=== PATIENT | female | born 1955 | race Caucasian/White ===

== ENCOUNTER 2019-05-01 20:42 | Observation (INO) | payer OTHER, MEDICARE ==
--- OUTSIDE RECORDS SUMMARY | 2019-05-01 20:44 | XMS REPORT ---
:1955 [facility] Address [address] [place] [address] Care Team Providers Name Role Phone Unavailable Unavailable Unavailable Problems This patient has no known problems. Allergies, Adverse Reactions, Alerts This patient has no known allergies or adverse reactions. Medications This patient has no known medications. Results Test Description Test Time Test Comments Text Results Atomic Results Result Comments RAD, CHEST, 2 2017-11-14 Reason for FINAL REPORT PATIENT VIEWS 09:55:00 Exam:->Q23.1Reason for ID: [id number] Chest, Exam:->I67.89Reason for PA and lateral. Exam:->147.1Reason for History: Q23.1. Exam:->E78.4Reason for Comparison: 07/20/2016. Exam:->R73.09Reason for Discussion: Heart size Exam:->Z13.1Reason for upper limits of normal. Exam:->R94.31Reason for The lungs are clear Exam:->I35.8 without evidence of consolidation or effusion. There are no acute osseous abnormalities. The soft tissues are unremarkable. IMPRESSION: No acute cardiopulmonary abnormality. Signed: Min Mccabe MDReport Verified Date/Time: 11/14/2017 09:55:09 Reading Location: [address] Radiology Reading Room
--- OUTSIDE RECORDS SUMMARY | 2019-05-01 20:44 | XMS REPORT | Clinical Summary ---
:1955 Author Organization [facility] Address [address] [place] [address] Care Team Providers Name Role Phone Kristofer Arambula Primary Care Provider Allergies Not on File Medications Not on file Active Problems Not on file Social History Tobacco Use Types Packs/Day Years Used Date Never Assessed Sex Assigned at Date Recorded Not on file Job Start Date Occupation Industry Not on file Not on file Not on file Travel History Travel Start Travel End No recent travel history available. Last Filed Vital Signs Not on file Plan of Treatment Not on file Results Not on fileafter 04/30/2018 Insurance Payer Benefit Plan / Subscriber ID Type Phone Address Group BLUE CROSS/BLUE BCBS ADV HMO xxxxxxxxxxxx [phone] [address] [place] [address]
[2019-05-01] MEDS ORDERED: ASPIRIN 81 MG CHEWABLE TABLET ONE (21:25)
[2019-05-01] MEDS ORDERED: METOPROLOL TAR 25 MG TAB ONE (21:25)
[2019-05-01] MEDS ORDERED: NA CHLORIDE 0.9% 500 ML ONE (21:25)
[2019-05-01 21:54] LABS: Absolute Lymphocytes (CBC) 1.6 K/uL (0.7-4.9); Basophils % 0.4 % (0-1.3); Eosinophils % 0.5 % (0-4.4); Lymphocytes % 35.8 % (15.3-44.8); MPV 10.6 fL (7.6-11.3); Monocytes % 10.9 % (3.3-12.3); RBC Red Blood Cell Count 5.01 M/uL (3.86-4.86)
[2019-05-01 22:06] LABS: Potassium 3.7 mmol/L (3.5-5.1); Thyroid Stimulating Hormone 0.806 uIU/mL (0.360-3.740); Troponin (Emerg Dept Use Only) 0.02 ng/mL (0.0-0.045)
--- NOTE | 2019-05-01 22:24 | EDPHYS ---
Physician Documentation [facility] Name: China Guevara Age: 63 yrs Sex: Female : 1955 Arrival Date: 05/01/2019 Time: 20:45 Bed 27 Private MD: ED Physician Chi Hand HPI: 05/01 21:10 This 63 yrs old Female presents to ER via Unassigned with complaints of rn Palpitations, Anxiety. 21:10 The patient presents with a history of irregular heart beat, heart racing. Context: The rn symptoms occur at rest. Onset: The symptoms/episode began/occurred 2 day(s) ago. Duration: The patient or guardian reports multiple episodes, that are intermittent. Modifying factors: The symptoms are aggravated by nothing. The symptoms are alleviated by nothing. Severity of symptoms: At their worst the symptoms were moderate in the emergency department the symptoms have improved. The patient has experienced a previous episode. Reports 2-3 days of intermittent palpitations, feels anxious, no chest pain, mild sob, no syncope. . 21:10 Reports has happened a few times before, seen here for it, but no diagnosis. Takes rn enalapril, metoprolol. . Historical: - Allergies: 22:32 Levaquin; ca1 - Home Meds: 22:32 enalapril maleate 5 mg Oral tab 1 tab once daily [Active]; metoprolol tartrate 25 mg ca1 Oral tab [Active]; atorvastatin 40 mg oral tab [Active]; - PMHx: 22:32 High Cholesterol; Hypertension; Irregular heart rate; Aortic Valve Problem; ca1 - PSHx: 22:32 None; ca1 - Immunization history:: Flu vaccine is not up to date. - Family history:: not pertinent. - Social history:: Smoking status: Patient/guardian denies using tobacco. - Ebola Screening: : Patient negative for fever greater than or equal to 101.5 degrees Fahrenheit, and additional compatible Ebola Virus Disease symptoms Patient denies exposure to infectious person Patient denies travel to an Ebola-affected area in the 21 days before illness onset. - Hospitalizations: : No recent hospitalization is reported. ROS: 21:10 Constitutional: Negative for fever, chills, and weight loss, Neck: Negative for injury, rn pain, and swelling, Cardiovascular: + palpitations, negative for chest pain Respiratory: Negative for cough, wheezing, and pleuritic chest pain, Abdomen/GI: Negative for abdominal pain, nausea, vomiting, diarrhea, and constipation, MS/Extremity: Negative for injury and deformity, Skin: Negative for injury, rash, and discoloration, Neuro: Negative for headache, weakness, numbness, tingling, and seizure. Exam: 21:10 Constitutional: This is a well developed, well nourished patient who is awake, alert, rn appears anxious Head/Face: Normocephalic, atraumatic. ENT: MMM Neck: Trachea midline, no thyromegaly or masses palpated, and no cervical lymphadenopathy. Supple, full range of motion without nuchal rigidity, or vertebral point tenderness. No Meningismus. Cardiovascular: tachycardic, irregular, no murmur Respiratory: Mild tachypnea, no retractions, is speaking full sentences Abdomen/GI: soft, non-tender MS/ Extremity: Pulses equal, no cyanosis. Neurovascular intact. Full, normal range of motion. Equal circumference. Neuro: Awake and alert, GCS 15, oriented to person, place, time, and situation. Cranial nerves II-XII grossly intact. Motor strength 5/5 in all extremities. Sensory grossly intact. Cerebellar exam normal. Normal gait. Vital Signs: 21:04 BP 142 / 94; Pulse 112; Resp 16 S; Pulse Ox 98% on R/A; Weight 65.77 kg (R); Height 5 ca1 ft. 2 in. (157.48 cm); Pain 4/10; 21:30 BP 148 / 86; Pulse 99; Resp 19 S; Pulse Ox 97% on R/A; ca1 22:30 BP 129 / 66; Pulse 76; Resp 17 S; Temp 98.4(O); Pulse Ox 97% on R/A; ca1 23:30 BP 121 / 69; Pulse 75; Resp 16 S; Pulse Ox 98% on R/A; ca1 05/02 00:03 BP 112 / 69; Pulse 77; Resp 16 S; Temp 98.2(O); Pulse Ox 98% on R/A; ca1 05/01 21:04 Body Mass Index 26.52 (65.77 kg, 157.48 cm) ca1 MDM: 05/01 20:52 Patient medically screened. rn 21:10 ED course: Told in past that may have aortic valve problem. . rn 22:21 Differential diagnosis: arrythmia, dehydration, stress disorder. Data reviewed: vital rn signs, nurses notes. Data reviewed: lab test result(s), EKG, radiologic studies, plain films, and as a result, I will admit patient. Counseling: I had a detailed discussion with the patient and/or guardian regarding: the historical points, exam findings, and any diagnostic results supporting the discharge/admit diagnosis, lab results, radiology results, the need for further work-up and treatment in the hospital. Response to treatment: the patient's symptoms have markedly improved after treatment, and as a result, I will admit patient. Admission orders: after a detailed discussion of the patient's condition and case, the admit orders are written by me. ED course: Will admit patient for new onset Afib with RVR, improved with metoprolol, may convert to sinus soon. Story sounds like paroxysmal Afib given previous episodes in past that self-resolved. Needs ECHO to rule out valvular afib given that she was told had aortic valve problem in past. No significant murmur appreciated on exam.. 22:56 ED course: Talking to patient, patient reported feeling lightheaded and near syncopal, rn recycled BP and was 140/90, HR controlled, laid her flat and she felt better, nurse notified to monitor patient, is admitted to Dr. Romero.. 05/01 21:04 Order name: CBC with Diff; Complete Time: 22:18 05/01 21:04 Order name: Basic Metabolic Panel; Complete Time: 22:18 05/01 21:04 Order name: Troponin (emerg Dept Use Only); Complete Time: 22:18 05/01 21:04 Order name: N-Terminal Pro-brain Natriuretic Peptide; Complete Time: 22:18 05/01 21:04 Order name: TSH; Complete Time: 22:18 05/01 21:04 Order name: T4 Free; Complete Time: 22:18 05/01 21:04 Order name: EKG; Complete Time: 21:05 05/01 21:10 Order name: XRAY Chest (1 view) 05/01 23:12 Order name: CONS Physician Consult [facility] 05/01 23:12 Order name: Echo with Doppler [facility] 05/01 21:04 Order name: IV Start; Complete Time: 21:53 rn 05/01 21:04 Order name: EKG - Nurse/Tech; Complete Time: 21:06 rn 05/01 23:12 Order name: EKG Electrocardiogram EDMS Administered Medications: 21:10 Drug: Metoprolol 25 mg Route: PO; ca1 05/02 00:04 Follow up: Response: No adverse reaction; Cardiac rhythm changed ca1 05/01 21:13 Drug: Aspirin Chewable Tablet 324 mg Route: PO; ca1 05/02 00:04 Follow up: Response: No adverse reaction ca1 05/01 21:45 Drug: NS 0.9% 500 ml Route: IV; Rate: bolus; Site: left forearm; cc3 23:00 Follow up: IV Status: Completed infusion ca1 22:49 Drug: Lovenox 1 mg/kg Route: Sub-Q; Site: right lower abdomen; ca1 05/02 00:04 Follow up: Response: No adverse reaction ca1 Disposition: 05/01/19 22:23 Hospitalization ordered by Charlotte Romero for Inpatient Admission. Preliminary diagnosis are Paroxysmal atrial fibrillation, Near syncope, Dyspnea, unspecified. - Bed requested for Telemetry/MedSurg (Inpatient). - Status is Inpatient Admission. ca1 - Condition is Stable. - Problem is new. - Symptoms have improved. UTI on Admission? No Signatures: Dispatcher [employer] EDMS Chi Hand MD MD rn Garcia, Cindy, RN RN cg Cordel, Charlene cc3 Laura Ridley RN RN ca1 Corrections: (The following items were deleted from the chart) 05/01 23:14 22:23 Hospitalization Ordered by Charlotte Romero MD for Inpatient Admission. Preliminary cg diagnosis is Paroxysmal atrial fibrillation; Near syncope; Dyspnea, unspecified. Bed requested for Telemetry/MedSurg (Inpatient). Status is Inpatient Admission. Condition is Stable. Problem is new. Symptoms have improved. UTI on Admission? No. rn 05/02 00:24 05/01 23:14 05/01/2019 22:23 Hospitalization Ordered by Charlotte Romero MD for Inpatient ca1 Admission. Preliminary diagnosis is Paroxysmal atrial fibrillation; Near syncope; Dyspnea, unspecified. Bed requested for Telemetry/MedSurg (Inpatient). Status is Inpatient Admission. Condition is Stable. Problem is new. Symptoms have improved. UTI on Admission? No. cg
--- NOTE | 2019-05-01 22:24 | ER ---
Nurse's Notes [facility] Name: China Guevara Age: 63 yrs Sex: Female : 1955 Arrival Date: 05/01/2019 Time: 20:45 Bed 27 Private MD: Diagnosis: Paroxysmal atrial fibrillation;Near syncope;Dyspnea, unspecified Presentation: 05/01 22:36 Acuity: ELIZABETH 2 ca1 22:37 Presenting complaint: Patient states: I have palpitations for a few days now. I can ca1 feel my heart racing but it slows down. But yesterday and today it seem like it doesn't slow down so I came to the ER. Transition of care: patient was not received from another setting of care. Onset of symptoms was May 01, 2019. Risk Assessment: Do you want to hurt yourself or someone else? Patient reports no desire to harm self or others. Initial Sepsis Screen: Does the patient meet any 2 criteria? No. Patient's initial sepsis screen is negative. Does the patient have a suspected source of infection? No. Patient's initial sepsis screen is negative. Care prior to arrival: None. 22:37 Method Of Arrival: Wheelchair ca1 Triage Assessment: 22:37 General: Appears in no apparent distress. comfortable, Behavior is calm, cooperative, ca1 appropriate for age. Historical: - Allergies: 22:32 Levaquin; ca1 - Home Meds: 22:32 enalapril maleate 5 mg Oral tab 1 tab once daily [Active]; metoprolol tartrate 25 mg ca1 Oral tab [Active]; atorvastatin 40 mg oral tab [Active]; - PMHx: 22:32 High Cholesterol; Hypertension; Irregular heart rate; Aortic Valve Problem; ca1 - PSHx: 22:32 None; ca1 - Immunization history:: Flu vaccine is not up to date. - Family history:: not pertinent. - Social history:: Smoking status: Patient/guardian denies using tobacco. - Ebola Screening: : Patient negative for fever greater than or equal to 101.5 degrees Fahrenheit, and additional compatible Ebola Virus Disease symptoms Patient denies exposure to infectious person Patient denies travel to an Ebola-affected area in the 21 days before illness onset. - Hospitalizations: : No recent hospitalization is reported. Screenin:00 Abuse screen: Denies threats or abuse. Denies injuries from another. Nutritional ca1 screening: No deficits noted. Tuberculosis screening: No symptoms or risk factors identified. 21:00 Fall Risk IV access (20 points). ca1 Assessment: 21:00 General: Appears in no apparent distress. comfortable, Behavior is calm, cooperative, ca1 appropriate for age. Pain: Complains of pain in chest Pain does not radiate. Pain currently is 4 out of 10 on a pain scale. Quality of pain is described as pressure, Pain began 2-3 days ago. 21:00 Neuro: Level of Consciousness is awake, alert, obeys commands, Oriented to person, ca1 place, time, situation. 21:00 Cardiovascular: Heart tones S1 S2 present Capillary refill < 3 seconds Patient's skin ca1 is warm and dry. Pulses are all present. Rhythm is atrial fibrillation with rapid ventricular response. Respiratory: Airway is patent Respiratory effort is even, unlabored, Respiratory pattern is regular, symmetrical, Breath sounds are clear bilaterally. GI: Abdomen is round non-distended, Bowel sounds present X 4 quads. Abd is soft and non tender X 4 quads. : No deficits noted. No signs and/or symptoms were reported regarding the genitourinary system. EENT: No deficits noted. No signs and/or symptoms were reported regarding the EENT system. Derm: Skin is intact, is healthy with good turgor, Skin is pink, warm \T\ dry. Musculoskeletal: Circulation, motion, and sensation intact. Capillary refill < 3 seconds, Range of motion: intact in all extremities. 22:00 Reassessment: Patient appears in no apparent distress at this time. Patient and/or ca1 family updated on plan of care and expected duration. Pain level reassessed. Patient is alert, oriented x 3, equal unlabored respirations, skin warm/dry/pink. 22:00 Cardiovascular: Rhythm is sinus rhythm. ca1 23:01 Reassessment: Patient appears in no apparent distress at this time. Patient and/or ca1 family updated on plan of care and expected duration. Pain level reassessed. Patient is alert, oriented x 3, equal unlabored respirations, skin warm/dry/pink. 23:44 Reassessment: Patient appears in no apparent distress at this time. Patient is alert, ca1 oriented x 3, equal unlabored respirations, skin warm/dry/pink. Called 4th floor, talked to Harleen about pt c/o of feeling lightheaded and dizzy while talking to Dr. Hand. And pt on bedrest for now, head flat on bed for precautionary measure. VS stable and within normal range. Vital Signs: 21:04 BP 142 / 94; Pulse 112; Resp 16 S; Pulse Ox 98% on R/A; Weight 65.77 kg (R); Height 5 ca1 ft. 2 in. (157.48 cm); Pain 4/10; 21:30 BP 148 / 86; Pulse 99; Resp 19 S; Pulse Ox 97% on R/A; ca1 22:30 BP 129 / 66; Pulse 76; Resp 17 S; Temp 98.4(O); Pulse Ox 97% on R/A; ca1 23:30 BP 121 / 69; Pulse 75; Resp 16 S; Pulse Ox 98% on R/A; ca1 05/02 00:03 BP 112 / 69; Pulse 77; Resp 16 S; Temp 98.2(O); Pulse Ox 98% on R/A; ca1 05/01 21:04 Body Mass Index 26.52 (65.77 kg, 157.48 cm) ca1 ED Course: 05/01 20:45 Patient arrived in ED. es 20:52 Chi Hand MD is Attending Physician. rn 21:00 Patient has correct armband on for positive identification. Placed in gown. Bed in low ca1 position. Call light in reach. Side rails up X 1. hospital monitor on. Pulse ox on. NIBP on. Warm blanket given. 21:00 Arm band placed on right wrist. EKG completed in triage. Results shown to MD. ca1 21:06 Laura Ridley, LAURYN is Primary Nurse. ca1 21:15 Missed attempt(s): 20 gauge in right antecubital area. Bleeding controlled, band aid ca1 applied, catheter tip intact. 21:25 Missed attempt(s): 20 gauge in left antecubital area. Bleeding controlled, band aid ca1 applied, catheter tip intact. 21:39 XRAY Chest (1 view) In Process Unspecified. EDMS 21:45 Inserted saline lock: 22 gauge in left forearm, using aseptic technique. cc3 22:22 Charlotte Romero MD is Hospitalizing Provider. rn 22:37 Triage completed. ca1 22:40 No provider procedures requiring assistance completed. Patient admitted, IV remains in ca1 place. Administered Medications: 21:10 Drug: Metoprolol 25 mg Route: PO; ca1 05/02 00:04 Follow up: Response: No adverse reaction; Cardiac rhythm changed ca1 05/01 21:13 Drug: Aspirin Chewable Tablet 324 mg Route: PO; ca1 05/02 00:04 Follow up: Response: No adverse reaction ca1 05/01 21:45 Drug: NS 0.9% 500 ml Route: IV; Rate: bolus; Site: left forearm; cc3 23:00 Follow up: IV Status: Completed infusion ca1 22:49 Drug: Lovenox 1 mg/kg Route: Sub-Q; Site: right lower abdomen; ca1 05/02 00:04 Follow up: Response: No adverse reaction ca1 Outcome: 05/01 22:23 Decision to Hospitalize by Provider. rn 23:45 Admitted to Tele accompanied by tech, via stretcher, room 411, with chart, Report fc called to Oscar Carson RN 23:45 Condition: good 23:45 Discharge instructions given to patient, Instructed on the need for admit, Demonstrated understanding of instructions. 05/02 00:24 Patient left the ED. ca1 Signatures: Dispatcher [employer] EDRebecca Gonzalez Felicia, RN RN Chi Hand MD MD rn Cordel, Charlene cc3 Laura Ridley RN RN ca1 Corrections: (The following items were deleted from the chart) 05/01 22:30 21:00 Pain: Complains of pain in chest Pain does not radiate. Pain currently is 4 out ca1 of 10 on a pain scale. Quality of pain is described as pressure, Pain began 2-3 days ago. ca1 22:35 22:30 BP 129 / 66; Pulse 76bpm; Resp 17bpm; Pulse Ox 97% RA; Temp 98.4F Oral; ca1 ca1 05/02 00:02 05/01 23:44 Reassessment: Patient appears in no apparent distress at this time. Patient ca1 is alert, oriented x 3, equal unlabored respirations, skin warm/dry/pink. ca1 05/02 00:05 05/01 22:00 Reassessment: Patient appears in no apparent distress at this time. Patient ca1 and/or family updated on plan of care and expected duration. Pain level reassessed. Patient is alert, oriented x 3, equal unlabored respirations, skin warm/dry/pink. ca1 05/02 00:06 00:03 BP 112 / 69; Pulse 77bpm; Resp 16bpm; Spontaneous; Pulse Ox 98% RA; ca1 ca1
[2019-05-01] MEDS ORDERED: ENOXAPARIN 60 MG/0.6 ML SQ ONE (22:58)
[2019-05-01] MEDS ORDERED: ACETAMINOPHEN 500 MG TAB PO PRN (23:01)
[2019-05-01] MEDS ORDERED: ONDANSETRON 4 MG/2 ML VIAL IV PRN (23:01)
[2019-05-01] MEDS ORDERED: NA CHLORIDE 0.9% 1,000 ML IV SCH (23:45)
[2019-05-01] MEDS ORDERED: METOPROLOL TARTRATE 5 MG/5 ML INJ IV ONE (23:59)
[2019-05-02 06:10] LABS: Absolute Lymphocytes (CBC) 1.8 K/uL (0.7-4.9); Basophils % 0.2 % (0-1.3); Eosinophils % 0.5 % (0-4.4); Hematocrit 41.2 % (36.0-45.0); MPV 10.4 fL (7.6-11.3); Monocytes % 10.2 % (3.3-12.3); RBC Red Blood Cell Count 4.62 M/uL (3.86-4.86)
[2019-05-02 06:26] LABS: Bilirubin Total 0.4 mg/dL (0.2-1.0); Magnesium 2.5 mg/dL (1.8-2.4); Phosphorus 3.6 mg/dL (2.5-4.9); Potassium 3.9 mmol/L (3.5-5.1); Protein, Total 5.9 g/dL (6.4-8.2)
[2019-05-02] MEDS: METOPROLOL TAR 50 MG TAB PO SCH ×2 (06:35→07:03)
--- NOTE | 2019-05-02 06:39 | EKG ---
Test Date: 2019-05-01 Test Time: 20:58:00 [employer]ing [employer]: AG3 MEASUREMENT RESULTS: Intervals: Rate: 119 IA: QRSD: 80 QT: 340 QTc: 478 [place]: P: IA: QRS: 71 T: 30 INTERPRETIVE STATEMENTS: Atrial fibrillation with rapid ventricular response Nonspecific ST abnormality Abnormal ECG Compared to ECG 01/18/2018 00:44:31 ST (T wave) deviation now present Sinus rhythm no longer present T-wave abnormality no longer present Electronically Signed On 05-02-19 06:38:58 CDT by Surinder Reyes
--- NOTE | 2019-05-02 08:44 | RAD REPORT ---
EXAM DESCRIPTION: RAD - Chest Single View - 05/01/2019 9:40 pm CLINICAL HISTORY: Palpitations, shortness of breath COMPARISON: January 2018 TECHNIQUE: AP portable chest image was obtained 2137 hours . FINDINGS: No focal lung parenchymal process. No failure or volume overload. Lung markings are simila r to comparison. Mediastinum hilar regions are stable from comparison. Heart and vasculature are normal. No measurable pleural effusion and no pneumothorax. No acute bony abnormality seen. No acute aortic findings suspe cted. IMPRESSION: No acute cardiopulmonary process. No significant interval change.
--- NOTE | 2019-05-02 10:08 | EKG ---
Test Date: 2019-05-02 Test Time: 07:23:44 [employer]: NICOLE MEASUREMENT RESULTS: Intervals: Rate: 51 ME: 166 QRSD: 92 QT: 460 QTc: 423 [place]: P: 69 ME: 166 QRS: 51 T: 48 INTERPRETIVE STATEMENTS: Sinus bradycardia with sinus arrhythmia Otherwise normal ECG Compared to ECG 05/01/2019 20:58:00 Atrial fibrillation no longer present ST (T wave) deviation no longer present Electronically Signed On 05-02-19 10:07:18 CDT by Benny Gonzalez
[2019-05-02] MEDS ORDERED: ENOXAPARIN 60 MG/0.6 ML SQ SCH (11:00)
[2019-05-02] MEDS ORDERED: POTASSIUM CL SA 10 MEQ TAB PO ONE (11:00)
--- NOTE | 2019-05-02 11:38 | P.HP ---
Certification for Inpatient Patient admitted to: Observation With expected LOS: <2 Midnights Patient will require the following post-hospital care: None Practitioner: I am a practitioner with admitting privileges, knowledge of patient current condition, hospital course, and medical plan of care. Services: Services provided to patient in accordance with Admission requirements found in Title 42 Section 412.3 of the Code of Federal Regulations Patient History Date of Service: 05/01/19 Reason for admission: ATRIAL FIBRILLATION WITH RAPID VENTRICULAR RESP History of Present Illness: PATIENT IS A 63-YEAR-OLD FEMALE WHO CAME TO THE HOSPITAL WITH PALPITATIONS. SHE HAS BEEN HAVING THEM QUITE FREQUENTLY OVER THE LAST FEW DAYS. TODAY WAS REALLY BAD SO SHE CAME TO THE HOSPITAL FOR FURTHER EVALUATION. IN THE EMERGENCY ROOM SHE WAS FOUND TO BE IN ATRIAL FIBRILLATION WITH RVR. PATIENT WAS GIVEN BETA-BLOCKERS HER SYMPTOMS RESOLVED. SHE WILL BE ADMITTED TO THE HOSPITAL FOR FURTHER TESTING. WE WILL GET CARDIOLOGY CONSULTATION, AND START PATIENT ON ANTICOAGULATION WELL. PATIENT IS CLINICALLY DOING BETTER AT THIS TIME. WILL OBSERVE HER IN THE HOSPITAL FOR THE NEXT 24 HR AND ANTICIPATE DISCHARGE HOME LATER TOMORROW EVENING. Allergies levofloxacin [From Levaquin] Adverse Reaction (Severe, Verified 05/02/19 00:54) severe vomiting Home Medications: Atorvastatin Calcium 1 tab PO BEDTIME 05/02/19 Enalapril Maleate [Vasotec] 5 mg PO DAILY 05/02/19 Metoprolol Succinate 25 mg PO DAILY 05/02/19 - Past Medical/Surgical History Has patient received pneumonia vaccine in the past: No Diabetic: No -: high cholesterol -: hypertension -: irregular heart rate Past Surgical History: Patient denies surgical history - Family History Mother Medical History: Heart disease, Diabetes Father History Unknown: Yes - Social History Smoking Status: Never smoker Alcohol use: No CD- Drugs: No Caffeine use: No Place of Residence: Home Review of Systems 10-point ROS is otherwise unremarkable Physical Examination - Vital Signs Temperature: 98.0 F Blood Pressure: 107/58 Pulse: 55 Respirations: 18 Pulse Ox (%): 96 - Physical Exam General: Alert, In no apparent distress, Oriented x3 HEENT: Atraumatic, PERRLA, Mucous membr. moist/pink, EOMI, Sclerae nonicteric Neck: Supple, 2+ carotid pulse no bruit, No LAD, Without JVD or thyroid abnormality Respiratory: Clear to auscultation bilaterally, Normal air movement Cardiovascular: Regular rate/rhythm, Normal S1 S2 Gastrointestinal: Normal bowel sounds, No tenderness Musculoskeletal: No tenderness Integumentary: No rashes Neurological: Normal gait, Normal speech, Normal strength at 5/5 x4 extr, Normal tone, Sensation intact, Cranial nerves 3-12 intact, Normal affect Lymphatics: No axilla or inguinal lymphadenopathy - Studies Laboratory Data (last 24 hrs) 05/01/19 21:20: Sodium 142, Potassium 3.7, BUN 13, Creatinine 0.85, Glucose 143 H 05/01/19 21:20: WBC 4.4, Hgb 15.0, Hct 45.0, Plt Count 149 L Assessment & Plan - Problems (Diagnosis) (1) Atrial fibrillation with rapid ventricular response Current Visit: Yes Status: Acute - Plan 1. WILL CONTINUE MEDICATIONS FOR RATE CONTROL AND ANTICOAGULATION 2. CONTINUE WITH STRICT BLOOD PRESSURE CONTROL 3. ECHOCARDIOGRAM 4. CARDIOLOGY CONSULTATION 5. REPEAT CHEST X-RAY 6. GI AND DVT PROPHYLAXIS - Advance Directives Does patient have a Living Will: No Does patient have a Durable POA for Healthcare: No
--- NOTE | 2019-05-02 12:37 | ECHO ---
HEIGHT: 5 ft 2 in WEIGHT: 144 lb 11.2 oz DATE OF STUDY: 05/02/[address]: Charlotte Romero MD 2-DIMENSIONAL: YES M.MODE: YES DOPPLER: YES COLOR FLOW: YES TDS: NO PORTABLE: NO DEFINITY: NO BUBBLE STUDY: NO DIAGNOSIS: ATRIAL FIBRILLATION WITH RAPID VENTRICULAR RESPONSE CARDIAC HISTORY: CATHERIZATION: SURGERY: PROSTHETIC VALVE: PACEMAKER: MEASUREMENTS (cm) DIASTOLIC (NORMALS) SYSTOLIC (NORMALS) IVSd 0.7 (0.6-1.2) LA Diam 2.9 (1.9-4.0) LVEF 73% LVIDd 5.4 (3.5-5.7) LVIDs 3.1 (2.0-3.5) %FS 42% LVPWd 0.9 (0.6-1.2) Ao Diam 3.1 (2.0-3.7) 2 DIMENSIONAL ASSESSMENT: RIGHT ATRIUM: NORMAL LEFT ATRIUM: NORMAL RIGHT VENTRICLE: NORMAL LEFT VENTRICLE: NORMAL TRICUSPID VALVE: NORMAL MITRAL VALVE: NORMAL PULMONIC VALVE: NORMAL AORTIC VALVE: SCLEROSIS PERICARDIAL EFFUSION: NONE AORTIC ROOT: NORMAL LEFT VENTRICULAR WALL MOTION: NORMAL DOPPLER/COLOR FLOW: NORMAL COMMENTS: AORTIC SCLEROSIS WITH NO STENOSIS. NORMAL LEFT VENTRICULAR SIZE AND FUNCTION. NO WALL MOTION ABNORMALITY. NO EFFUSION. TECHNOLOGIST: [employer]
[2019-05-02] MEDS ORDERED: ATORVASTATIN 40 MG TAB PO SCH (21:00)
--- NOTE | 2019-05-02 23:14 | CON ---
Date of Consultation: 05/02/2019 Reason For Consultation: New-onset atrial fibrillation. History Of Present Illness: Ms. Guevara is a 63-year-old woman. She sees with Dr. Juwan Patel in [facility] from a cardiac standpoint. She sees [facility], here locally. She has had a history of hypertension, dyslipidemia, aortic valve disorder, and irregular heartbeat in the past, but has ne nevin been documented to have atrial fibrillation. She came in with atrial fibrillation, rapid ventric ular response, that has now converted to sinus rhythm after use of IV Lopressor. She denied syncope. Denied chest pain. She had shortness of breath and palpitation. Denies nausea, vomiting, or diaph oresis. Allergies: SHE IS ALLERGIC TO LEVAQUIN. Medications: At home include metoprolol, Lipitor, and Vasotec. Review of Systems: Negative. Social History: Negative. Family History: Noncontributory. Physical Examination: General: She was in sinus rhythm today. No acute distress. Vital Signs: Stable. Afebrile. HEENT: Negative. Neck: Supple with no bruit. Chest: Clear to auscultation and percussion. Cardiac: Regular rhythm and rate with a 2/6 systolic ejection murmur at the right intercostal space that did not radiate. Abdomen: Benign. Extremities: No clubbing, cyanosis, or edema. Diagnostic Data: Her BNP was 387. Her triglycerides were high. Initial EKG showed atrial fibrillat ion, the next one was normal. Impression And Plan: New-onset atrial fibrillation, resolved on beta becky. I think she needs to be on a higher dose of beta becky at home. The patient is to be anticoagulated because she has a v estrella high CHADS score. She is a woman, 63, high blood pressure with cholesterol as well as aortic keyur ve disorder. I will leave that up to Dr. Romero, who want to put her on Xarelto and Eliquis. This was discussed with the patient. I think she can go home whenever it is okay with admitting physician an d follow up with Dr. Patel in the near future. Her other problems including hypertension are stable. Her dyslipidemia is poorly controlled and she needs to follow up on that with Dr. Patel or with Ms. Juarez. An echocardiogram is pending to rule out aortic stenosis. LAURENCE/MODL Voice ID: [id number] Report ID: [id number]
--- NOTE | 2019-05-03 00:31 | DS ---
Date of Discharge: 05/02/2019 Consultants: Dr. Gonzalez. Procedures: None. Discharge Diagnoses: 1. Atrial fibrillation with RVR. 2. Essential hypertension. 3. Mixed hyperlipidemia. Hospital Course: The patient is a 63-year-old female, came in with palpitations. The patient was found to have atrial fibrillation with RVR. The patient has had these episodes previously, however, was not previously diagnosed. The patient was given beta blockers, which helped improved her rate. She converted back to sinus rhythm. She was seen by Cardiology, Dr. Gonzalez and she was also started on anticoagulation with Lovenox. Dr. Gonzalez recommended increasing Lopressor to 50 mg twice a day and to start her on oral anticoagulation. The patient overall did well. Her troponin levels were negative. TSH was normal. Magnesium level was slightly high at 2.5. No signs of any other acute infection. White blood cell count was normal. The patient usually follows up with Dr. Patel in [facility] and is recommended to follow up with her primary child development professor in 1-2 weeks post discharge. The patient was then cleared for discharge and she was sent home in a stable condition. Activity: As tolerated. Medications: As per medication reconciliation list. Followup: Follow up with primary care physician in 2-3 days. Follow up with primary child development professor, Dr. Patel at [facility]. Return to ER for worsening condition. Diet: Heart-healthy. Medications: As per medication reconciliation list. Physical Examination: General: Awake, alert, oriented x3. No acute distress. CV: S1, S2. No murmurs. Respiratory: Moving air well bilaterally. Abdomen: Soft, nontender, nondistended. Positive bowel sounds. Extremities: No clubbing, cyanosis, or edema. Neuro: Nonfocal. Code Status: Full. SA/MODL Voice ID: [id number] Report ID: [id number] MTDD
--- NOTE | 2019-05-03 08:27 | EKG ---
Test Date: 2019-05-02 Test Time: 13:45:49 Automotive Artist: SHIRA MEASUREMENT RESULTS: Intervals: Rate: 67 CO: 146 QRSD: 88 QT: 434 QTc: 458 [place]: P: 51 CO: 146 QRS: 56 T: 34 INTERPRETIVE STATEMENTS: Normal sinus rhythm with sinus arrhythmia Normal ECG Compared to ECG 05/02/2019 07:23:44 Sinus bradycardia no longer present Electronically Signed On 05-03-19 08:25:00 CDT by Benny Gonzalez
[2019-05-03] MEDS ORDERED: ENALAPRIL 2.5 MG TAB PO SCH (09:00)
== END 2019-05-02 14:55 | disposition home or self-care (01) ==
LOC: ER 20:42 → ERHOLD 23:02 → 4TH 23:48
PROVIDERS: ADMIT Hospitalist; ATTEND Hospitalist
DX: I48.2 Chronic atrial fibrillation (principal); I10 Essential (primary) hypertension; E78.5 Hyperlipidemia, unspecified; I35.8 Other nonrheumatic aortic valve disorders
CPT/HCPCS: 93005 ×3; 93306; 85025 ×2; 80048; 36415; 83735; 84100; 84443; 84484 ×2; 84439; 80053; 83880 ×2; 71045; 96360; 96372; 99285; J1650; J7030; G0378 ×2

== ENCOUNTER 2021-01-18 20:14 | Inpatient (IN) | payer OTHER, MEDICARE ==
--- OUTSIDE RECORDS SUMMARY | 2021-01-18 20:17 | XMS REPORT | Continuity of Care Document ---
:1955 Author Organization [facility] t Address [address] [place] [address] Care Team Providers Name Role Phone Moustapha Arambula Primary Care Physician Problems This patient has no known problems. Allergies, Adverse Reactions, Alerts This patient has no known allergies or adverse reactions. Social History Social Habit Start Date Stop Date Quantity Comments Source Sex Assigned At [facility] Medications This patient has no known medications. Procedures This patient has no known procedures. Plan of Care Planned Activity Planned Date Details Comments Source Future Scheduled 2020-07-07 INFLUENZA VACCINE (#1) [facility] - Test 00:00:00 [code = INFLUENZA Medical Ce nter VACCINE (#1)] Future Scheduled 2019-10-[address] [facility] - Test 00:00:00 WELLNESS (YEAR 2 or Medical Center FIRST YEAR if no IPPE) [code = MEDICARE ANNUAL WELLNESS (YEAR 2 or FIRST YEAR if no IPPE)] Future Scheduled 2018 PNEUMOCOCCAL 65+ YRS [facility] - Test 00:00:00 (1 of 1 - [facility] Center [id number]) [code = PNEUMOCOCCAL 65+ YRS (1 of 1 - [id number] PCV13)] Future Scheduled [address] [facility] - Test 00:00:00 [facility] of [facility] breast (procedure) [code = 269935940] Future Scheduled [address] [facility] - Test 00:00:00 malignant neoplasm of [facility] colon (procedure) [code = 678985476] Results Test Description Test Time Test Comments Results Result [facility] e Comments RAD, CHEST, 2 2019-06-26 Reason for FINAL REPORT PATIENT VIEWS 11:45:00 Exam:->AR ID: [id number] TECHNIQUE: Frontal and lateral views of the chest. INDICATION: 63-year-old woman with aortic regurgitation. COMPARISON: Chest radiographs 11/14/2017. FINDINGS: LINES/TUBES: None. LUNGS: The lungs are well inflated and clear. PLEURA: No pleural effusion or pneumothorax. HEART AND MEDIASTINUM: The cardiomediastinal silhouette is within normal limits. Atherosclerotic calcifications in the mildly tortuous thoracic aorta. SOFT TISSUES AND BONES: Unremarkable. IMPRESSION:No acute cardiopulmonary abnormalities. No significant change since 11/14/2017. Signed: Susie Page MDRolga Verified Date/Time: 06/26/2019 11:45:00 Reading Location: [address] Radiology Reading Room , CHEST, 2 2017-11-14 Reason for FINAL REPORT PATIENT VIEWS 09:55:00 Exam:->Q23.1Re ID: [id number] Chest, ason for PA and lateral. Exam:->I67.89R History: Q23.1. ray for Comparison: 07/20/2016. Exam:->147.1Re Discussion: Heart size ason for upper limits of normal. Exam:->E78.4Re The lungs are clear ason for without evidence of Exam:->R73.09R consolidation or ray for effusion. There are no Exam:->Z13.1Re acute osseous ason for abnormalities. The soft Exam:->R94.31R tissues are ray for unremarkable. Exam:->I35.8 IMPRESSION: No acute cardiopulmonary abnormality. Signed: Min Cotnreras MDReport Verified Date/Time: 11/14/2017 09:55:09 Reading Location: [address] Radiology Reading Room
[2021-01-19 00:54] LABS: Absolute Lymphocytes (CBC) 1.4 K/uL (0.7-4.9); Basophils % 0.9 % (0-1.3); Hematocrit 40.9 % (36.0-45.0); Lymphocytes % 18.2 % (15.3-44.8); MPV 10.9 fL (7.6-11.3); RBC Red Blood Cell Count 4.53 M/uL (3.86-4.86)
[2021-01-19 01:01] LABS: Protime INR 0.97
[2021-01-19 01:07] LABS: Urine Blood NEGATIVE (NEG); Urine Glucose NEGATIVE (NEG); Urine Protein NEGATIVE (NEG); Urine Specific Gravity 1.025 (1.005-1.030)
[2021-01-19 01:15] LABS: Albumin 3.7 g/dL (3.4-5.0); Bilirubin Direct 0.1 mg/dL (0-0.2); Bilirubin Total 0.4 mg/dL (0.2-1.0); Magnesium 2.2 mg/dL (1.8-2.4); Potassium 3.8 mmol/L (3.5-5.1); Protein, Total 7.2 g/dL (6.4-8.2); Troponin (Emerg Dept Use Only) 0.14 ng/mL (0.0-0.045)
--- NOTE | 2021-01-19 01:56 | EDPHYS ---
Physician Documentation [facility] Name: China Guevara Age: 65 yrs Sex: Female : 1955 Arrival Date: 01/18/2021 Time: 21:42 Bed 6 Private MD: ED Physician Horace Giron HPI: 01/19 07:49 This 65 yrs old Female presents to ER via Ambulatory with complaints of tw4 Memory Loss. 07:49 The patient's problem is reported as altered mental status, disoriented to self, place, tw4 confused, decreased responsiveness. Onset: The symptoms/episode began/occurred today, 8 hour(s) ago. Duration: This was a single incident. Context: the episode(s) was witnessed, by a significant other. The symptoms are alleviated by nothing. The symptoms are aggravated by nothing. Severity of symptoms: At their worst the symptoms were moderate in the emergency department the symptoms are unchanged. The patient has not experienced similar symptoms in the past. Historical: - Allergies: 01/18 21:50 Levaquin; ca1 - PMHx: 21:50 aortic valve problem; High Cholesterol; Hypertension; Irregular heart rate; ca1 - PSHx: 21:50 None; ca1 - Immunization history:: Flu vaccine is not up to date. - Social history:: Smoking status: Patient denies any tobacco usage or history of. ROS: 01/19 07:49 Constitutional: Negative for fever, chills, and weight loss, Eyes: Negative for injury, tw4 pain, redness, and discharge, Cardiovascular: Negative for chest pain, palpitations, and edema, Respiratory: Negative for shortness of breath, cough, wheezing, and pleuritic chest pain, Abdomen/GI: Negative for abdominal pain, nausea, vomiting, diarrhea, and constipation, Back: Negative for injury and pain, MS/Extremity: Negative for injury and deformity, Skin: Negative for injury, rash, and discoloration. Neuro: Positive for altered mental status, Negative for dizziness, gait disturbance, headache, seizure activity, speech changes, syncope, near syncope, tingling, tinnitus, tremor. Exam: 07:49 Radiologist reports: NORMAL NOTHING ACUTE tw4 07:49 Constitutional: This is a well developed, well nourished patient who is awake, alert, and in no acute distress. Head/Face: Normocephalic, atraumatic. Chest/axilla: Normal chest wall appearance and motion. Nontender with no deformity. No lesions are appreciated. Cardiovascular: Regular rate and rhythm with a normal S1 and S2. No gallops, murmurs, or rubs. Normal PMI, no JVD. No pulse deficits. Respiratory: Lungs have equal breath sounds bilaterally, clear to auscultation and percussion. No rales, rhonchi or wheezes noted. No increased work of breathing, no retractions or nasal flaring. Abdomen/GI: Soft, non-tender, with normal bowel sounds. No distension or tympany. No guarding or rebound. No evidence of tenderness throughout. Back: No spinal tenderness. No costovertebral tenderness. Full range of motion. MS/ Extremity: Pulses equal, no cyanosis. Neurovascular intact. Full, normal range of motion. Neuro: Awake and alert, GCS 15, oriented to person, place, time, and situation. Cranial nerves II-XII grossly intact. Motor strength 5/5 in all extremities. Sensory grossly intact. Cerebellar exam normal. Normal gait. Vital Signs: 01/18 21:43 BP 141 / 78; Pulse 63; Resp 16 S; Temp 97.3(TE); Pulse Ox 100% on R/A; Weight 72.57 kg ca1 (R); Height 5 ft. 3 in. (160.02 cm) (R); Pain 0/10; 01/19 00:00 BP 125 / 89; Pulse 60; Resp 16; Pulse Ox 98% ; rr5 01/18 21:43 Body Mass Index 28.34 (72.57 kg, 160.02 cm) ca1 MDM: 01/18 23:55 Patient medically screened. tw4 01/19 07:51 Differential diagnosis: CVA, TIA. Data reviewed: vital signs, nurses notes. Data tw4 interpreted: Pulse oximetry: Interpretation: normal. Counseling: I had a detailed discussion with the patient and/or guardian regarding: the historical points, exam findings, and any diagnostic results supporting the discharge/admit diagnosis. Physician consultation: Stephen Gibson DO regarding admission, to the telemetry unit. patient's condition, and will see patient in ED. Special discussion:. 01/18 23:27 Order name: Basic Metabolic Panel; Complete Time: 01:22 ea 01/19 01:22 Interpretation: Normal except: CL 110; GFR 82. tw4 01/18 23:27 Order name: CBC with Diff; Complete Time: 01:22 01/19 01:22 Interpretation: PLT 149; MN% 3.1; BR[place]GET[place]% 77.5. tw4 01/18 23:27 Order name: LFT's; Complete Time: 01:22 01/18 23:27 Order name: Magnesium; Complete Time: 01:22 01/18 23:27 Order name: NT PRO-BNP; Complete Time: 01:22 01/18 23:27 Order name: PT-INR; Complete Time: 01:22 01/18 23:27 Order name: Troponin (emerg Dept Use Only); Complete Time: : 01/19 00:12 Order name: Urine Dipstick--Ancillary (enter results); Complete Time: 01:22 tt3 01/19 02:10 Order name: COVID-19 : Document "Date of Symptom Onset" if Symptomatic. tt3 01/19 02:58 Order name: UDS la1 01/19 02:58 Order name: Urine Drug Screen [facility] 01/19 03:59 Order name: SARS-COV-2 RT PCR [facility] 01/18 23:27 Order name: XRAY Chest (1 view) 01/18 23:27 Order name: EKG; Complete Time: 23:48 01/18 23:27 Order name: Cardiac monitoring; Complete Time: 00:41 01/18 23:27 Order name: EKG - Nurse/Tech; Complete Time: 00:41 01/18 23:27 Order name: IV Saline Lock; Complete Time: 00:41 01/18 23:27 Order name: Labs collected and sent; Complete Time: 00:41 01/18 23:46 Order name: Ct Stroke Brain Wo Cont [facility] 01/19 05:57 Order name: Troponin I [facility] 01/19 08:10 Order name: Lipid Profile [facility] 01/19 08:10 Order name: T4 Free [facility] 01/19 08:10 Order name: Thyroid Stimulating Hormone [facility] 01/18 23:27 Order name: O2 Per Protocol; Complete Time: 00:41 01/18 23:27 Order name: O2 Sat Monitoring; Complete Time: 00:41 01/18 23:29 Order name: Urine Dipstick-Ancillary (obtain specimen); Complete Time: 00:41 tw4 EC:49 Rate is 59 beats/min. Rhythm is regular, Sinus bradycardia. QRS [place] is Normal. [place] tw4 interval is normal. QRS interval is normal. QT interval is normal. No Q waves. T waves are Inverted in leads V1, V2, V3. No ST changes noted. Clinical impression: Sinus bradycardia. Interpreted by me. Reviewed by me. Administered Medications: 02:07 Drug: Lovenox 1 mg/kg Route: Sub-Q; Site: right lower abdomen; rr5 03:37 Follow up: Response: No adverse reaction rr5 03:36 Drug: Atorvastatin 40 mg Route: PO; rr5 05:55 Follow up: Response: No adverse reaction ea 03:37 Drug: foLIC Acid 1 mg Route: PO; rr5 05:55 Follow up: Response: No adverse reaction ea 03:37 Drug: Aspirin Chewable Tablet 324 mg Route: PO; rr5 05:56 Follow up: Response: No adverse reaction ea Disposition: 01/19/21 01:56 Hospitalization ordered by Stephen Gibson for Inpatient Admission. Preliminary diagnosis are Non-ST elevation (NSTEMI) myocardial infarction, Altered mental status, unspecified. - Bed requested for Telemetry/MedSurg (Inpatient). - Status is Inpatient Admission. sv - Condition is Stable. - Problem is new. - Symptoms have improved. Signatures: Dispatcher [employer] [facility] Ann-Marie Corbett RN RN sv Webb, Martha, RN RN Clinton Love RN RN sg Lydia, Ankur, VICE PRESIDENT RISK MANAGEMENT-C VICE PRESIDENT RISK MANAGEMENT-Cla1 Emily Martin RN RN ea Wadley, Terrence, MD MD tw4 Juan Gibson, RN RN rr5 Laura Ridley RN RN ca1 Corrections: (The following items were deleted from the chart) 01/18 23:52 23:48 Head Brain Wo Cont+CT.RAD.BRZ ordered. [facility] 01/19 02:04 01:56 Hospitalization Ordered by Juan Hand MD for Inpatient Admission. Preliminary sg diagnosis is Non-ST elevation (NSTEMI) myocardial infarction; Altered mental status, unspecified. Bed requested for Telemetry/MedSurg (Inpatient). Status is Inpatient Admission. Condition is Stable. Problem is new. Symptoms have improved. tw4 02:31 02:04 01/19/2021 01:56 Hospitalization Ordered by Juan Hand MD for Inpatient la1 Admission. Preliminary diagnosis is Non-ST elevation (NSTEMI) myocardial infarction; Altered mental status, unspecified. Bed requested for [facility] ER HOLD. Status is Inpatient Admission. Condition is Stable. Problem is new. Symptoms have improved. 03:12 02:08 CORONAVIRUS+MR.LAB.BRZ ordered. EDDE EDMS 03:13 02:11 CORONAVIRUS ordered. EDDE EDMS 06:28 02:31 01/19/2021 01:56 Hospitalization Ordered by Stephen Gibson DO for Inpatient mw Admission. Preliminary diagnosis is Non-ST elevation (NSTEMI) myocardial infarction; Altered mental status, unspecified. Bed requested for [facility] ER HOLD. Status is Inpatient Admission. Condition is Stable. Problem is new. Symptoms have improved. la1 08:41 06:28 01/19/2021 01:56 Hospitalization Ordered by Stephen Gibson DO for Inpatient sv Admission. Preliminary diagnosis is Non-ST elevation (NSTEMI) myocardial infarction; Altered mental status, unspecified. Bed requested for Telemetry/MedSurg (Inpatient). Status is Inpatient Admission. Condition is Stable. Problem is new. Symptoms have improved. mw
--- NOTE | 2021-01-19 01:56 | ER ---
Nurse's Notes [facility] Name: China Guevara Age: 65 yrs Sex: Female : 1955 Arrival Date: 01/18/2021 Time: 21:42 Bed 6 Private MD: Diagnosis: Non-ST elevation (NSTEMI) myocardial infarction;Altered mental status, unspecified Presentation: 01/18 21:43 Chief complaint: Spouse and/or significant other states: Around 1630 this afternoon, ca1 she woke up from a nap she was okay, she sounded normal. 10 minutes later, she went to the kitchen, she ws confused, did not know what day of the week it is, she can't name our cats, she just started asking odd questions. A\T\Ox3. No slurring, no facial droop. VAN negative. Coronavirus screen: Client denies travel out of the [place] in the last 14 days. At this time, the client does not indicate any symptoms associated with coronavirus-19. Ebola Screen: Patient negative for fever greater than or equal to 101.5 degrees Fahrenheit, and additional compatible Ebola Virus Disease symptoms Patient denies exposure to infectious person. Patient denies travel to an Ebola-affected area in the 21 days before illness onset. No symptoms or risks identified at this time. Initial Sepsis Screen: Does the patient meet any 2 criteria? No. Patient's initial sepsis screen is negative. Does the patient have a suspected source of infection? No. Patient's initial sepsis screen is negative. Risk Assessment: Do you want to hurt yourself or someone else? Patient reports no desire to harm self or others. Onset of symptoms was January 18, 2021 at 16:30. 21:43 Method Of Arrival: Ambulatory ca1 21:43 Acuity: ELIZABETH 2 ca1 Historical: - Allergies: 21:50 Levaquin; ca1 - PMHx: 21:50 aortic valve problem; High Cholesterol; Hypertension; Irregular heart rate; ca1 - PSHx: 21:50 None; ca1 - Immunization history:: Flu vaccine is not up to date. - Social history:: Smoking status: Patient denies any tobacco usage or history of. Screenin:21 Abuse screen: Denies threats or abuse. Nutritional screening: No deficits noted. ea Tuberculosis screening: No symptoms or risk factors identified. 23:22 Fall Risk IV access (20 points). ea Assessment: 22:30 General: Appears in no apparent distress. comfortable, Behavior is calm, cooperative, rr5 appropriate for age. 22:30 Pain: Denies pain. Neuro: Level of Consciousness is awake, alert, obeys commands, rr5 Oriented to person, place, time, situation, Reports I cannot remember what happened. Cardiovascular: Capillary refill < 3 seconds Patient's skin is warm and dry. Respiratory: Airway is patent Respiratory effort is even, unlabored, Respiratory pattern is regular, symmetrical. GI: No signs and/or symptoms were reported involving the gastrointestinal system. : No signs and/or symptoms were reported regarding the genitourinary system. EENT: No signs and/or symptoms were reported regarding the EENT system. Derm: Skin is intact, is healthy with good turgor, Skin temperature is warm. Musculoskeletal: Circulation, motion, and sensation intact. Capillary refill < 3 seconds. 23:30 Reassessment: Patient appears in no apparent distress at this time. Patient is alert, rr5 oriented x 3, equal unlabored respirations, skin warm/dry/pink. awaiting for results. 01/19 00:00 Reassessment: Patient and/or family updated on plan of care and expected duration. Pain ea level reassessed. Patient is alert, oriented x 3, equal unlabored respirations, skin warm/dry/pink. 01:30 Reassessment: Patient and/or family updated on plan of care and expected duration. Pain ea level reassessed. Patient is alert, oriented x 3, equal unlabored respirations, skin warm/dry/pink. 02:00 Reassessment: Patient and/or family updated on plan of care and expected duration. Pain ea level reassessed. Patient is alert, oriented x 3, equal unlabored respirations, skin warm/dry/pink. 03:50 Reassessment: Patient and/or family updated on plan of care and expected duration. Pain ea level reassessed. Patient is alert, oriented x 3, equal unlabored respirations, skin warm/dry/pink. 04:50 Reassessment: Patient and/or family updated on plan of care and expected duration. Pain ea level reassessed. Patient is alert, oriented x 3, equal unlabored respirations, skin warm/dry/pink. Vital Signs: 01/18 21:43 BP 141 / 78; Pulse 63; Resp 16 S; Temp 97.3(TE); Pulse Ox 100% on R/A; Weight 72.57 kg ca1 (R); Height 5 ft. 3 in. (160.02 cm) (R); Pain 0/10; 01/19 00:00 BP 125 / 89; Pulse 60; Resp 16; Pulse Ox 98% ; rr5 01/18 21:43 Body Mass Index 28.34 (72.57 kg, 160.02 cm) ca1 ED Course: 01/18 21:42 Patient arrived in ED. ca1 21:50 Triage completed. ca1 21:50 Arm band placed on right wrist. ca1 23:21 Emily Martin, RN is Primary Nurse. ea 23:22 Patient has correct armband on for positive identification. Bed in low position. Call ea light in reach. Side rails up X2. 23:28 Horace Giron MD is Attending Physician. tw4 23:51 Ct Stroke Brain Wo Cont In Process Unspecified. EDMS 01/19 00:00 foundation drill operator helper on. Pulse ox on. NIBP on. rr5 00:00 Inserted saline lock: 20 gauge in left forearm, using aseptic technique. Blood rr5 collected. 00:15 EKG done, by ED staff, reviewed by Horace Giron MD. rr5 00:22 XRAY Chest (1 view) In Process Unspecified. EDMS 01:55 Juan Hand MD is Hospitalizing Provider. tw4 02:31 Stephen Gibson DO is Hospitalizing Provider. la1 05:55 No provider procedures requiring assistance completed. Patient admitted, IV remains in ea place. Administered Medications: 02:07 Drug: Lovenox 1 mg/kg Route: Sub-Q; Site: right lower abdomen; rr5 03:37 Follow up: Response: No adverse reaction rr5 03:36 Drug: Atorvastatin 40 mg Route: PO; rr5 05:55 Follow up: Response: No adverse reaction ea 03:37 Drug: foLIC Acid 1 mg Route: PO; rr5 05:55 Follow up: Response: No adverse reaction ea 03:37 Drug: Aspirin Chewable Tablet 324 mg Route: PO; rr5 05:56 Follow up: Response: No adverse reaction ea Outcome: 01:56 Decision to Hospitalize by Provider. tw4 05:55 Admitted to ER Hold. Please see [facility] for further documentation. robert 05:55 Condition: stable 05:55 Instructed on the need for admit. 08:41 Patient left the ED. sv Signatures: Dispatcher [employer] EDAnn-Marie Brady, RN RN Ankur Carlisle, TORQUE TESTER-C TORQUE TESTER-Cla1 Emily Martin RN RN Horace Gomez MD MD tw4 Juan Gibson RN RN rr5 Laura Ridley RN RN ca1
[2021-01-19] MEDS ORDERED: ENOXAPARIN 80 MG/0.8 ML SQ ONE (02:16)
--- NOTE | 2021-01-19 03:14 | P.HP ---
Certification for Inpatient Patient admitted to: Inpatient With expected LOS: >2 Midnights Patient will require the following post-hospital care: None Practitioner: I am a practitioner with admitting privileges, knowledge of patient current condition, hospital course, and medical plan of care. Services: Services provided to patient in accordance with Admission requirements found in Title 42 Section 412.3 of the Code of Federal Regulations Patient History Date of Service: 01/19/21 Primary Care Provider: Larry SOLANO, cardiology Dr. Montanez Reason for admission: NSTEMI, amnesia History of Present Illness: 65-year-old female with history of aortic sclerosis, hypertension, hyperlipidemia, paroxysmal atrial fibrillation presents the emergency department for short-term memory loss. reports that he has been staying with her today and he last saw her well around , patient then went into the bedroom and unchanged, when she came out has been reports that she was not quite acting herself acting very anxious, afraid in appeared slightly confused, this lasts for a few hr. Patient reports that she does not remember anything until after she already been brought to the emergency department, reports she does not remember much from Monday the at all. reports that she did not appear to be experiencing any slurred speech, weakness, difficulty walking throughout the episode, she was not clutching her chest, did not have syncopal episode. At this time patient without any focal neurological deficits, denies any chest pain, shortness of breath, dizziness. CT head negative for any acute findings lab significant for troponin 0.14 BNP 165. Patient reports 1 similar episode approximately 20 years ago for which did not seek evaluation. Patient sees Cardiology in [place] and was taken off of Xarelto and placed on just daily aspirin sometime ago. Last echocardiogram available here was from 2019 demonstrating aortic sclerosis without aortic stenosis. Patient reports last cardiac catheterization was approximately 20 years ago. Patient denies any chest pain, shortness of breath at this time, no edema noted. Patient was given full dose Lovenox in the emergency department, ED provider wishes to admit for further evaluation and management. Allergies levofloxacin [From Levaquin] Adverse Reaction (Severe, Verified 05/02/19 00:54) severe vomiting Home Medications: Atorvastatin Calcium 1 tab PO BEDTIME 05/02/19 Enalapril Maleate [Vasotec] 5 mg PO DAILY 06/27/19 Metoprolol Tartrate [Lopressor*] 50 mg PO BID #60 tab 05/02/19 Rivaroxaban [Xarelto] 20 mg PO DAILY #30 tab 05/02/19 - Past Medical/Surgical History Diabetic: No -: Hyperlipidemia -: hypertension -: Paroxysmal atrial fibrillation not on chronic anticoagulation therapy -: Depression -: none Psychosocial/ Personal History: Patient lives at home with her and is r etired - Family History Mother -: Heart disease, Diabetes - Social History Smoking Status: Never smoker Alcohol use: No CD- Drugs: No Caffeine use: No Place of Residence: Home Review of Systems 10-point ROS is otherwise unremarkable Neurological: As per HPI Physical Examination - Physical Exam General: Alert, In no apparent distress HEENT: Atraumatic, PERRLA, Mucous membr. moist/pink Neck: Supple, 2+ carotid pulse no bruit, No LAD Respiratory: Clear to auscultation bilaterally, Normal air movement Cardiovascular: Regular rate/rhythm, Normal S1 S2 Gastrointestinal: Normal bowel sounds, No tenderness Musculoskeletal: No tenderness Integumentary: No rashes Neurological: Normal gait, Normal speech, Normal strength at 5/5 x4 extr, Normal tone, Cranial nerves 3-12 intact, Normal affect - Studies Laboratory Data (last 24 hrs) 01/19/21 00:00: PT 11.2, INR 0.97 01/19/21 00:00: WBC 7.90, Hgb 13.7, Hct 40.9, Plt Count 149 L 01/19/21 00:00: Sodium 143, Potassium 3.8, BUN 8, Creatinine 0.71, Glucose 98, Magnesium 2.2, Total Bilirubin 0.4, AST 20, ALT 30, Alkaline Phosphatase 91 Assessment and Plan - Plan Assessment NSTEMI Retrograde amnesia Paroxysmal atrial fibrillation not on chronic anticoagulation therapy Hypertension Hyperlipidemia Depression Plan NSTEMI: Patient without any chest pain, shortness of breath, epigastric pain or really any complaint at this time. Patient does have history of aortic sclerosis without stenosis on the last echocardiogram from 2019. Last heart catheterization approximately 20 years ago. Monitor on telemetry, cardiology consult in place. Continue with full-dose Lovenox at this time, which was given in the emergency department. Continue aspirin, beta-becky, statin therapy. Appreciate further input from cardiology. Retrograde amnesia: Patient has recovered at this time but does not remember any of the events from yesterday, no focal neurological deficits noted. Neurology consulted. Patient given folic acid, aspirin. MRI stroke protocol ordered in addition to echocardiogram. Appreciate further input from neurology. Patient reports a similar episode in the past which she was never evaluated for. Paroxysmal atrial fibrillation not on chronic anticoagulation therapy: Patient currently takes daily aspirin, was in sinus rhythm when I saw her in the emergency department. Patient was previously on Xarelto but taken off by her underwriting analyst. Hypertension: Continue metoprolol, adjust as necessary Hyperlipidemia: Continue atorvastatin Depression: Continue Paxil. Discharge Plan: Home Plan to discharge in: 48 Hours - Advance Directives Does patient have a Living Will: No Does patient have a Durable POA for Healthcare: No - Code Status/Comfort Care Code Status Assessed: Yes (Full code) Critical Care: No Time Spent Managing Pts Care (In Minutes): 55
[2021-01-19] MEDS ORDERED: ASPIRIN 81 MG CHEWABLE TABLET ONE (03:21)
[2021-01-19] MEDS ORDERED: ATORVASTATIN 20 MG TAB ONE (03:21)
[2021-01-19] MEDS ORDERED: FOLIC ACID 1 MG TABLET ONE (03:21)
[2021-01-19] MEDS ORDERED: ONDANSETRON 4 MG/2 ML VIAL IV PRN (04:19)
[2021-01-19] MEDS ORDERED: ACETAMINOPHEN 500 MG TAB PO PRN (04:19)
[2021-01-19 05:50] VITALS: BMI 28.0
--- NOTE | 2021-01-19 07:43 | P.PN ---
Subjective Date of Service: 01/19/21 Primary Care Provider: Larry SOLANO, Cardiology Dr. Montanez([facility]) Chief Complaint: NSTEMI, amnesia Subjective: Improving, Doing well Physical Examination - Studies Laboratory Data (last 24 hrs) 01/19/21 00:00: PT 11.2, INR 0.97 01/19/21 00:00: WBC 7.90, Hgb 13.7, Hct 40.9, Plt Count 149 L 01/19/21 00:00: Sodium 143, Potassium 3.8, BUN 8, Creatinine 0.71, Glucose 98, Magnesium 2.2, Total Bilirubin 0.4, AST 20, ALT 30, Alkaline Phosphatase 91 Assessment & Plan Discharge Plan: Home Plan to discharge in: 24 Hours Physician Review Additional Text: Physical exam: Patient alert, cooperative. No significant distress. Patient oriented x3. Heart: Regular rate rhythm Lungs: Clear to auscultation Abdomen: Soft nontender nondistended Extremities: Good range of motion to the upper lower extremities without focal deficits Impression: Elevated troponin secondary to NSTEMI possible underlying CAD Retrograde amnesia etiology unknown Paroxysmal atrial fibrillation not on chronic anticoagulation therapy Hypertension Hyperlipidemia Depression Plan: Elevated troponin secondary to NSTEMI possible underlying CAD: Patient doing w ell this time. No chest pain, shortness of breath. Troponin remains elevated. Continue to trend troponin. Obtain echocardiogram. Patient does have history of aortic sclerosis without stenosis on the last echocardiogram from 2019. Last heart catheterization approximately 20 years ago. Continue to monitor on telemetry. Cardiology consulted. Await recommendation. Patient will likely require further cardiac evaluation. Will discuss with cardiology. Continue aspirin, beta-becky therapy, folic acid and statin medication. Retrograde amnesia etiology unknown: Patient back to baseline. Patient does not remember any of the events from yesterday, no focal neurological deficits noted. Neurology consulted. Initial CT scan unremarkable. Will continue with MRI, carotid Doppler, and echocardiogram. Patient reports a similar episode in the distant past which she was never evaluated for. Paroxysmal atrial fibrillation not on chronic anticoagulation therapy: Patient remains in sinus rhythm. Patient was previously on Xarelto but taken off by her cook chef. Continue aspirin. Hypertension: Continue metoprolol, adjust as necessary Hyperlipidemia: Continue atorvastatin. Will obtain fasting lipid panel. Depression: Continue Paxil. Time Spent Managing Pts Care (In Minutes): 55
--- NOTE | 2021-01-19 07:49 | RAD REPORT ---
EXAM DESCRIPTION: Raheel Single View3 12:22 am CLINICAL HISTORY: Chest pain COMPARISON: 2019 FINDINGS: The lungs appear clear of acute infiltrate. The heart is normal size IMPRESSION: No acute abnormalities displayed
[2021-01-19 08:09] LABS: Thyroid Stimulating Hormone 1.69 uIU/mL (0.360-3.740)
[2021-01-19 08:47] VITALS: O2SAT 98
[2021-01-19] MEDS ORDERED: PARoxetine HCL 10 MG TAB PO SCH (09:00)
[2021-01-19] MEDS ORDERED: ENALAPRIL 2.5 MG TAB PO SCH (09:00)
[2021-01-19] MEDS ORDERED: ASPIRIN EC 81 MG TAB PO SCH (09:00)
[2021-01-19] MEDS ORDERED: FOLIC ACID 1 MG TABLET PO SCH (09:00)
[2021-01-19] MEDS ORDERED: POTASSIUM CL SA 10 MEQ TAB PO ONE (09:00)
[2021-01-19] MEDS ORDERED: ENOXAPARIN 80 MG/0.8 ML SQ SCH (09:00)
[2021-01-19] MEDS ORDERED: METOPROLOL XL 25 MG TAB PO SCH (09:00)
--- NOTE | 2021-01-19 10:39 | RAD REPORT ---
EXAM DESCRIPTION: MRI - Brain Wo Cont - 01/19/2021 10:19 am CLINICAL HISTORY: amnesia COMPARISON: January 18, 2021 TECHNIQUE: Axial, sagittal, and coronal magnetic images of the brain were obtained. Contrast was not requested FINDINGS: Mild signal within periventricular, subcortical white matter probably ischemic changes sec ondary to small vessel disease Diffusion-weighted/ADC mapping does not reveal evidence of acute infarction. The ventricles are normal caliber. An extra-axial fluid collection is not present Fluid within the sinuses/mastoids is not noted IMPRESSION: No acute abnormality is displayed
--- NOTE | 2021-01-19 10:42 | RAD REPORT ---
EXAM DESCRIPTION: USCarotid Artery Bilateral01/19/2021 9:09 am CLINICAL HISTORY: retrograde amnesia COMPARISON: None FINDINGS: The velocity of the right internal carotid artery equals 91 cm/sec. The right ICA/CCA rati o 1.3 The velocity of the left internal carotid artery equals 100 cm/sec. The left ICA/CCA ratio 2.1 Mild plaque is present within the carotid arteries. Carotid arteries are tortuous The vertebral arteries demonstrate antegrade flow IMPRESSION: Mild plaque within the carotid arteries without evidence of a hemodynamically significan t stenosis NASCET criteria used. Mild 0-49% stenosis Moderate 50-69% stenosis Severe 70-99% stenosis
--- NOTE | 2021-01-19 10:42 | RAD REPORT ---
EXAM DESCRIPTION: MRI - MRA Head Wo Cont - 01/19/2021 10:04 am CLINICAL HISTORY: Amnesia COMPARISON: None. TECHNIQUE: Magnetic resonance angiogram was performed. 3D MIPS reconstruction performed FINDINGS: The anterior cerebral, middle cerebral, posterior cerebral, distal internal carotid and ba silar arteries do not demonstrate a significant stenosis. Hypoplastic A1 segment left anterior cerebr al artery An aneurysm is not displayed. IMPRESSION: No acute abnormality displayed
[2021-01-19] MEDS ORDERED: PNEUMOCOCCAL VACCINE 0.5 ML IMVAC ONE (11:00)
--- NOTE | 2021-01-19 12:45 | RAD REPORT ---
EXAM DESCRIPTION: CT - Ct Stroke Brain Wo Cont - 01/19/2021 6:23 am CLINICAL HISTORY: Memory loss COMPARISON: None available TECHNIQUE: Axial CT of the head obtained from the skull apex to the skull base without contrast. Thi s exam was performed according to our departmental dose-optimization program, which includes automate d exposure control, adjustment of the mA and/or kV according to patient size and/or use of iterative reconstruction technique. FINDINGS: No acute intracranial hemorrhage identified. No mass, mass effect, shift of the midline, a bnormal extra-axial fluid collection or CT evidence of acute ischemic change identified. The ventricu lar system and sulcal spaces are age appropriate. Scattered areas of hypodensity throughout the sup ratentorial white matter are nonspecific and may be related to chronic small vessel ischemic change. The visualized paranasal sinuses and mastoid air cells are well aerated. No skull fracture identifi ed. Visualized orbits and globes are unremarkable. Atherosclerotic calcification of the intracranial internal carotid arteries. IMPRESSION: 1. No acute intracranial abnormality by CT criteria. Electronically signed by: Dalton Borrero 01/18/2021 11:55 PM CDT Due to temporary technical issues with the PACS/Fluency reporting system, reports are being signed by the in house radiologist without review as a courtesy to ensure prompt reporting. The interpreting r adiologist is fully responsible for the content of the report.
--- NOTE | 2021-01-19 14:41 | P.DS ---
Admission Date: 01/19/21 Discharge Date: 01/19/21 Primary Care Provider: Larry ELASTIC ATTACHER CHAINSTITCH, Cardiology Dr. Montanez([facility]) Disposition: ROUTINE DISCHARGE Discharge Condition: GOOD Reason for Admission: NSTEMI, amnesia Consultations: Neurology-Dr. Mac Cardiology-Dr. Gonzalez Procedures: COVID: Negative MRI Brain: FINDINGS: Mild signal within periventricular, subcortical white matter probably ischemic changes secondary to small vessel disease Diffusion-weighted/ADC mapping does not reveal evidence of acute infarction. The ventricles are normal caliber. An extra-axial fluid collection is not present Fluid within the sinuses/mastoids is not noted IMPRESSION: No acute abnormality is displayed MRA Brain: COMPARISON: None. TECHNIQUE: Magnetic resonance angiogram was performed. 3D MIPS reconstruction performed FINDINGS: The anterior cerebral, middle cerebral, posterior cerebral, distal internal carotid and basilar arteries do not demonstrate a significant stenosis. Hypoplastic A1 segment left anterior cerebral artery An aneurysm is not displayed. IMPRESSION: No acute abnormality displayed Carotid doppler: FINDINGS: The velocity of the right internal carotid artery equals 91 cm/sec. The right ICA/CCA ratio 1.3 The velocity of the left internal carotid artery equals 100 cm/sec. The left ICA/CCA ratio 2.1 Mild plaque is present within the carotid arteries. Carotid arteries are tortuous The vertebral arteries demonstrate antegrade flow IMPRESSION: Mild plaque within the carotid arteries without evidence of a hemodynamically significant stenosis Medical Problem List: Elevated troponin secondary to NSTEMI possible underlying CAD Retrograde amnesia etiology unknown etiology, possible TIA vs partial complex seizures vs fugue state Paroxysmal atrial fibrillation not on chronic anticoagulation therapy Hypertension Hyperlipidemia Depression Brief History of Present Illness: 65-year-old female with history of aortic sclerosis, hypertension, h yperlipidemia, paroxysmal atrial fibrillation presents the emergency department for short-term memory loss. reports that he has been staying with her today and he last saw her well around 1630, patient then went into the bedroom and unchanged, when she came out has been reports that she was not quite acting herself acting very anxious, afraid in appeared slightly confused, this lasts for a few hr. Patient reports that she does not remember anything until after she already been brought to the emergency department, reports she does not remember much from Monday the at all. reports that she did not appear to be experiencing any slurred speech, weakness, difficulty walking throughout the episode, she was not clutching her chest, did not have syncopal episode. At this time patient without any focal neurological deficits, denies any chest pain, shortness of breath, dizziness. CT head negative for any acute findings lab significant for troponin 0.14 BNP 165. Patient reports 1 similar episode approximately 20 years ago for which did not seek evaluation. Patient sees Cardiology in [place] and was taken off of Xarelto and placed on just daily aspirin sometime ago. Last echocardiogram available here was from 2019 demonstrating aortic sclerosis without aortic stenosis. Patient reports last cardiac catheterization was approximately 20 years ago. Patient was admitted for further evaluation and treatment. Hospital Course: Patient presented with retrograde amnesia. Etiology unknown. Patient does not recall events leading up to entering the emergency room. Patient had a similar episode in the distant past. No etiology was known at that time. Patient with underlying history of paroxysmally atrial fibrillation, hypertension, hy perlipidemia, and depression. Patient found to have elevated troponin. Patient did not have any chest pain, shortness of breath or distress. NSTEMI was suspected. Patient was monitored closely. Initial CT scan unremarkable. MRI brain unremarkable. MRA brain unremarkable. Patient seen and evaluated by Cardiology and Neurology. Cardiology suspects this may be related to her paroxysmally atrial fibrillation. This may be a TIA which has resolved. No evidence of acute stroke noted. Neurology recommends EEG to rule out partial complex seizures. Patient also has underlying depression. Other consideration would be a fugue state. At this time patient back to baseline. No chest pain, shortness of breath noted. No further intervention recommended by Cardiology at this time. Cardiology recommends to continue Xarelto 20 mg daily. Aspirin has been discontinued. Patient will continue her other medications including Lipitor 40 mg daily, Vasotec 5 mg daily, and Toprol XL 12.5 mg 1 pill twice daily. Will also recommend folic acid 1 mg daily. Patient will need a follow up with cardiology in 1 week to follow up this hospitalization. Further evaluation as an outpatient will be done by cardiology. Patient will have EEG done as an outpatient. Arrangements will be made. Recommend follow up with neurology in 1-2 weeks to follow up this hospitalization as well. Patient with paroxysmally atrial fibrillation. Previously on Xarelto medication. This had been discontinued recently by her coating inspector. At this time patient will be restarted on Xarelto 20 mg daily. Patient will continue with Toprol-XL 12.5 mg 1 pill twice daily as well. As mentioned above patient will continue with her current medications of Toprol- XL and Vasotec. Recommend to maintain blood pressure less than 130/80. Further adjustment can be done by her PCP. Patient with hyperlipidemia. At discharge she will continue with Lipitor 40 mg daily. LDL 104. Recommend to recheck fasting lipid panel in 4-6 weeks to monitor her progress. Goal LDL should be less than 70. Further adjustment in medication can be done by her PCP. Patient with depression. At discharge she will continue with Paxil 20 mg daily. Vital Signs/Physical Exam: Temp Pulse Resp BP Pulse Ox 97.1 F 56 16 148/62 H 97 01/19/21 12:00 01/19/21 12:00 01/19/21 12:00 01/19/21 12:00 01/19/21 12:00 General: Alert, In no apparent distress, Oriented x3, Cooperative HEENT: Atraumatic Neck: Supple Respiratory: Clear to auscultation bilaterally, Normal air movement Cardiovascular: Normal pulses, Regular rate/rhythm Gastrointestinal: Normal bowel sounds, Soft and benign, Non-distended, No tenderness, No masses, No rebound, No guarding Musculoskeletal: No erythema, No tenderness, No warmth Integumentary: No tenderness/swelling Neurological: Normal speech, Normal strength at 5/5 x4 extr, Normal tone, Normal affect Laboratory Data at Discharge: WBC 7.90 K/uL (4.3-10.9) 01/19/21 00:00 Hgb 13.7 g/dL (12.0-15.0) 01/19/21 00:00 Hct 40.9 % (36.0-45.0) 01/19/21 00:00 Plt Count 149 K/uL (152-406) L 01/19/21 00:00 PT 11.2 SECONDS (9.5-12.5) 01/19/21 00:00 INR 0.97 01/19/21 00:00 Sodium 143 mmol/L (136-145) 01/19/21 00:00 Potassium 3.8 mmol/L (3.5-5.1) 01/19/21 00:00 BUN 8 mg/dL (7-18) 01/19/21 00:00 Creatinine 0.71 mg/dL (0.55-1.3) 01/19/21 00:00 Glucose 98 mg/dL (74-106) 01/19/21 00:00 Magnesium 2.2 mg/dL (1.8-2.4) 01/19/21 00:00 Total Bilirubin 0.4 mg/dL (0.2-1.0) 01/19/21 00:00 AST 20 U/L (15-37) 01/19/21 00:00 ALT 30 U/L (12-78) 01/19/21 00:00 Alkaline Phosphatase 91 U/L (45-117) 01/19/21 00:00 Troponin I 0.25 ng/mL (0.0-0.045) H 01/19/21 11:29 Triglycerides 118 mg/dL (<150) 01/19/21 05:10 Cholesterol 167 mg/dL (<200) 01/19/21 05:10 HDL Cholesterol 39 mg/dL (40-60) L 01/19/21 05:10 Cholesterol/HDL Ratio 4.28 01/19/21 05:10 Home Medications: Atorvastatin Calcium 1 tab PO BEDTIME 05/02/19 Enalapril Maleate [Vasotec] 5 mg PO DAILY 05/02/19 Folic Acid 1 mg PO DAILY #90 tablet 01/19/21 Metoprolol Succinate [Toprol Xl*] 12.5 mg PO BID 01/19/21 Paroxetine HCl [Paxil] 1 tab PO DAILY 01/19/21 Rivaroxaban [Xarelto] 20 mg PO DAILY #30 tablet 01/19/21 New Medications: Folic Acid 1 mg PO DAILY #90 tablet Rivaroxaban [Xarelto] 20 mg PO DAILY #30 tablet Physician Discharge Instructions: Patient presented with retrograde amnesia. Etiology unknown. Patient does not recall events leading up to entering the emergency room. Patient had a similar episode in the distant past. No etiology was known at that time. Patient with underlying history of paroxysmally atrial fibrillation, hypertension, hyperlipidemia, and depression. Patient found to have elevated troponin. Patient did not have any chest pain, shortness of breath or distress. NSTEMI was suspected. Patient was monitored closely. Initial CT scan unremarkable. MRI brain unremarkable. MRA brain unremarkable. Patient seen and evaluated by Cardiology and Neurology. Cardiology suspects this may be related to her paroxysmally atrial fibrillation. This may be a TIA which has resolved. No evidence of acute stroke noted. Neurology recommends EEG to rule out partial complex seizures. Patient also has underlying depression. Other consideration would be a fugue state. At this time patient back to baseline. No chest pain, shortness of breath noted. No further intervention recommended by Cardiology at this time. Cardiology recommends to continue Xarelto 20 mg daily. Aspirin has been discontinued. Patient will continue her other medications including Lipitor 40 mg daily, Vasotec 5 mg daily, and Toprol XL 12.5 mg 1 pill twice daily. Will also recommend folic acid 1 mg daily. Patient will need a follow up with cardiology in 1 week to follow up this hospitalization. Further evaluation as an outpatient will be done by cardiology. Patient will have EEG done as an outpatient. Arrangements will be made. Recommend follow up with neurology in 1-2 weeks to follow up this hospitalization as well. Patient with paroxysmally atrial fibrillation. Previously on Xarelto medication. This had been discontinued recently by her coating inspector. At this time patient will be restarted on Xarelto 20 mg daily. Patient will continue with Toprol-XL 12.5 mg 1 pill twice daily as well. As mentioned above patient will continue with her current medications of Toprol- XL and Vasotec. Recommend to maintain blood pressure less than 130/80. Further adjustment can be done by her PCP. Patient with hyperlipidemia. At discharge she will continue with Lipitor 40 mg daily. LDL 104. Recommend to recheck fasting lipid panel in 4-6 weeks to monitor her progress. Goal LDL should be less than 70. Further adjustment in medication can be done by her PCP. Patient with depression. At discharge she will continue with Paxil 20 mg daily. Diet: AHA Activity: Ad jose Followup: Unknown,U [Primary Care Provider] - Time spent managing pt's care (in minutes): 55
[2021-01-19 16:51] VITALS: BP 113/50; TEMP 97.9
--- NOTE | 2021-01-19 20:40 | CON ---
Reason For Consultation: Consultation called because of amnesia. History Of Present Illness: Ms. Guevara is a 65-year-old patient. She is right-handed and has paroxysm al atrial fibrillation, hypertension, dyslipidemia, who came to [facility] on 01/19/2021, th at is today, with complaints of sudden loss of memory and this was observed by her . She said she reports being at home, bedroom and then did not have another memory until [facility] where she noticed one of her family members. Reportedly, her husba nd told her she would speak, the words came out with good articulation, but not the content. She did not make sense while speaking. She did move arms and legs equally well. Face was symmetric. There was no evidence of an external deficit such as a focal neurological deficit. The patient came to [facility], had a head CT scan which showed no acute ischemic or hemorrhagic change. Brain MR I also showed no acute ischemic or hemorrhagic findings. The study was remarkable for mild small-ves panfilo ischemic disease. MRA of the brain was unremarkable. Carotid ultrasound showed no evidence of h emodynamically significant stenosis. Laboratory studies showed essentially unremarkable complete blo od count and differential, coagulation panel was normal. Chemistries showed no significant abnormali ties, however, she did have elevated troponins. Rapid troponin up to 0.14. Troponin I was elevated to 0.25. Multiple repeats do show slight decrease to 0.024. Beta natriuretic peptide was elevated. LDL cholesterol was 104, HDL 39, TSH 1.690, and liver function studies normal. Urinalysis negative. Toxicology screen was negative. COVID-19 was negative. Ms. Guevara has actually returned to her base line level of functioning at the time of my evaluation. She does report about 25 years ago she had a similar episode that lasted a few hours. She was home w ith her young children when the friends of her children noted confusion and the patient's son also no jet confusion, and she did not at that point have any focal findings, no seizure-like activity, and d id not seek a neurological workup. Past Medical History: As indicated. Depression. Allergies: LEVOFLOXACIN CAUSES SEVERE VOMITING. Medications: At home, atorvastatin daily, enalapril 5 mg daily, metoprolol 50 mg twice daily, Xarelt o 10 mg daily. Family History: Positive for heart disease and diabetes in mother. Social History: No alcohol, tobacco, or IV drug use. The patient lives at home with her . Review of Systems: She denies any recent fevers, chills, nausea, or vomiting. No myalgias, arthralgias, rash, headache, or weight change. No psychiatric issues. No gastrointestinal issues. Physical Examination: Vital Signs: Blood pressure 113/50, pulse of 53, respiratory rate 16, temperature 97.9, oxygen satur ation 97% on room air. General: Ms. Guevara is in bed, in no acute distress. HEENT: She is normocephalic, atraumatic. Sclerae anicteric. Oropharynx is pink and moist. Neck: Supple. Chest: Clear. Heart: Regular. Extremities: No edema or cyanosis. Neurological: She is alert and oriented to person, place, time, and situation. She has no expressiv e or receptive aphasias. Cranial nerves 2 through 12 are intact. Motor intact in the upper and lowe r extremities, 5/5 strength proximally and distally. Sensory exam intact in the upper and lower extr emities to light touch, pinprick, temperature. Her coordination is intact in the upper and lower ext remities. Her gait is intact. Assessment: Ms. Guevara is a 65-year-old patient with an episode of amnesia of unclear etiology. Diffe rential diagnosis should include a fugue state, also status partialis. She has no evidence of a stro ke. Plan: 1.EEG may be done outpatient. 2.At least an aspirin 81 mg will be continued since she does have a stroke risk with multiple stroke risk factors. Continue with Lipitor at bedtime. Continue with antihypertensive medications. Continue folic acid 1 mg daily and after discharge, follow up in Dr. Mac's clinic where EEG may be ordered outpatient. DENNY/JUSTICE Voice ID: [id number] Report ID: [id number]
[2021-01-19] MEDS ORDERED: ATORVASTATIN 40 MG TAB PO SCH (21:00)
--- NOTE | 2021-01-20 04:34 | EKG ---
Test Date: 2021-01-19 Test Time: 00:04:38 Customer Care Associate: RR MEASUREMENT RESULTS: Intervals: Rate: 59 AK: 168 QRSD: 88 QT: 462 QTc: 457 [place]: P: 44 AK: 168 QRS: 33 T: 56 INTERPRETIVE STATEMENTS: Sinus bradycardia with premature atrial complexes Nonspecific ST abnormality Abnormal ECG Compared to ECG 05/02/2019 13:45:49 Atrial premature complex(es) now present ST (T wave) deviation now present Sinus rhythm no longer present Sinus arrhythmia no longer present Electronically Signed On 01-20-21 04:32:20 CDT by Benny Gonzalez
--- NOTE | 2021-01-20 08:59 | ECHO ---
HEIGHT: 5 ft 3 in WEIGHT: 158 lb 11.725 oz DATE OF STUDY: 01/19/[address]: Ankur Freeman NP 2-DIMENSIONAL: YES M.MODE: YES DOPPLER: YES COLOR FLOW: YES TDS: YES PORTABLE: NO DEFINITY: NO BUBBLE STUDY: NO DIAGNOSIS: NSTEMI, ELEVATED BNP, HISTORY OF AORTIC SCLEROSIS CARDIAC HISTORY: CATHERIZATION: NO SURGERY: NO PROSTHETIC VALVE: NO PACEMAKER: NO MEASUREMENTS (cm) DIASTOLIC (NORMALS) SYSTOLIC (NORMALS) IVSd 1.2 (0.6-1.2) LA Diam 2.5 (1.9-4.0) LVEF 57% LVIDd 4.5 (3.5-5.7) LVIDs 3.1 (2.0-3.5) %FS 29% LVPWd 1.3 (0.6-1.2) Ao Diam 2.9 (2.0-3.7) 2 DIMENSIONAL ASSESSMENT: RIGHT ATRIUM: NORMAL LEFT ATRIUM: NORMAL RIGHT VENTRICLE: NORMAL LEFT VENTRICLE: NORMAL TRICUSPID VALVE: NORMAL MITRAL VALVE: NORMAL PULMONIC VALVE: NORMAL AORTIC VALVE: SCLEROSIS PERICARDIAL EFFUSION: NONE AORTIC ROOT: NORMAL LEFT VENTRICULAR WALL MOTION: NORMAL DOPPLER/COLOR FLOW: NORMAL COMMENTS: NORMAL LEFT VENTRICULAR SIZE AND FUNCTION. AORTIC SCLEROSIS. NO WALL MOTION ABNORMALITY. NO EFFUSION. TECHNOLOGIST: Armando JIANG
--- NOTE | 2021-01-26 02:57 | CON ---
History Of Present Illness: She was admitted with altered mental status, disorientation to self and place, and confusion. No symptoms of chest pain or shortness of breath or nausea or vomiting or diap horesis were reported. Denied PND, orthopnea, pedal edema, palpitations, or syncope. Her troponin w as elevated and I was consulted. Allergies: SHE IS ALLERGIC TO LEVAQUIN. Review of Systems: Negative. Social History: Negative. Family History: Negative. Past Medical History: Includes aortic stenosis, dyslipidemia, hypertension as well as palpitations. Medications: Listed by Dr. Gibson. Physical Examination: Vital Signs: Stable. She was afebrile. She was in sinus rhythm. HEENT: Negative. Neck: Supple without any bruit, lymphadenopathy, JVD, or thyromegaly. Chest: Clear to auscultation and percussion. Cardiac: Revealed a regular rhythm and rate. No murmurs, gallops, or rubs. Abdomen: Benign. Extremities: Revealed no clubbing, cyanosis, or edema. Diagnostic Data: Unremarkable. Troponin was 0.14. Impression And Plan: This is a patient with new onset altered mental status with history of hyperten terrance, dyslipidemia, aortic stenosis. No evidence of chest pain. I am not so sure what to make out o f the troponin elevation, but I doubt that this is related to a coronary event. She has a carotid Do ppler planned. Her EKG shows sinus bradycardia. Her chest x-ray basically was normal. I would defi nitely get a 2D echocardiogram. She needs a brain MRI with MRA. She needs neurological consultation , but definitely no plan to take her to the laboratory clerk based on the troponin alone. We will we will se e what her echocardiogram shows. Continue present regimen. NB/MODL Voice ID: [id number] Report ID: [id number]
--- NOTE | 2021-01-27 15:17 | PN ---
Date of Progress Note: 01/20/2021 Ms. Guevara came in with altered mental status that was acute, elevated troponin. No cardiac symptoms. However, echocardiogram was ordered and showed normal ejection fraction, no wall motion abnormalitie s, no effusion. She had aortic sclerosis, but no stenosis. Carotid artery ultrasound showed minimal plaquing. Brain MRI was negative. Dr. Mac has seen the patient and his assessment was that sh e may have had an episode of amnesia of unknown etiology, could have had a status partialis or a fugu e state. Plan was for aspirin and Lipitor, folic acid, and outpatient EEG. I will sign off her case . NB/MODL Voice ID: [id number] Report ID: [id number]
== END 2021-01-19 17:40 | disposition home or self-care (01) | DRG 281 ==
LOC: ER 20:14 → ERHOLD 01-19 04:06 → 4TH 01-19 07:39
PROVIDERS: ADMIT Family Medicine; ATTEND Family Medicine
DX: I21.4 Non-ST elevation (NSTEMI) myocardial infarction (principal); G45.9 Transient cerebral ischemic attack, unspecified; I10 Essential (primary) hypertension; I48.0 Paroxysmal atrial fibrillation; F41.9 Anxiety disorder, unspecified; F32.9 Major depressive disorder, single episode, unspecified; E78.5 Hyperlipidemia, unspecified; R41.2 Retrograde amnesia; Z88.1 Allergy status to other antibiotic agents; Z79.899 Other long term (current) drug therapy; Z79.01 Long term (current) use of anticoagulants; Z20.822 Contact with and (suspected) exposure to COVID-19
CPT/HCPCS: 36415; 70450; 70544; 70551; 70553; 71045; 80048; 80061; 80076; 81003; 83735; 83880; 84439; 84443; 84484; 85025; 85610; 93005; 93306; 93880; 96372; 99285; U0003